=== PATIENT | female | born 1990 | race Caucasian/White ===

== ENCOUNTER 2021-03-18 05:17 | Inpatient (IN) | payer OTHER ==
[2021-03-18] VITALS (17 sets, daily range): BP systolic 83–127; BP diastolic 46–69; PULSE 81–119; TEMP 97.9–98.3
[~2021-03-18] VITALS: Ht 162.6 cm; Wt 102.7 kg
--- NOTE | 2021-03-18 05:25 | NUR ---
0525- PT PRESENTS TO LDR FOR SCHEDULED PRIMARY SECTION, AMBULATORY TO ROOM 209. PT CHANGES INTO GOWN. 0532- EFM X2 APPLIED. 0545- IV START TO LEFT WRIST X3 ATTEMPTS. BLOOD DRAWN FOR LAB. LR INFUSING. 0600- PREOP MEDS GIVEN.
[2021-03-18 06:24] LABS: BASO % 0.2 % (0.0-2.0); EOS # 0.1 (0.0-0.7); EOS % 0.7 % (0-4.0); GRAN # 11.1 (1.4-6.5); GRAN % 74.2 % (42.2-75.2); HEMATOCRIT 37.8 % (37.0-47.0); HEMOGLOBIN 12.9 g/dl (12.5-16.0); LYMPH # 2.1 (1.2-3.4); LYMPH % 14.2 % (20.0-51.0); MEAN CELL VOLUME 95 fl (80.0-100.0); MEAN CORPUSCULAR HEMOGLOBIN 32 pg (27.0-31.0); MEAN CORPUSCULAR HGB CONC 34 g/dl (33.0-37.0); MEAN PLATELET VOLUME 10.1 fl (7.4-10.4); MONO # 1.5 (0.1-0.6); MONO % 9.8 % (1.7-9.3); PLATELET COUNT 240 K/mm3 (130-400); RED BLOOD COUNT 3.98 M/mm3 (4.10-5.30); REDCELL DISTRIBUTION WIDTH-CV 13.8 % (11.5-14.5)
[2021-03-18] MEDS ORDERED: SLOW FE142 MG PO (06:25)
[2021-03-18] MEDS ORDERED: PRENATAL TABLET PO (06:25)
--- NOTE | 2021-03-18 06:57 | NUR ---
FHT: OCCASIONAL CTX NOTED TO BE 60-90S IN LENGTH
--- NOTE | 2021-03-18 11:55 | NUR ---
WHEN THIS RN WAS IN ROOM FOR 1 HOUR VS POST RECOVERY, PT. STARTED GETTING DIAPHORETIC, NAUSEA, AND HOT. BP WAS FOUND TO BE A LITTLE LOW AND A LITTLE TACHYCARDIC (SEE REVIEW). PT. WAS GIVEN COLD WASH CLOTH, NEW BAG OF FLUIDS WERE HUNG, AND RECYCLED BP. THIS BP WAS HIGHER AND SHE WAS LESS TACHYCARDIC (SEE REVIEW). FUNDAL RUB WAS PERFORMED TO ASSESS BLEEDING STATUS. FUNDUS FIRM AT UMBILICUS AND SCANT BLEEDING NOTED. TENDERNESS AROUND FUNDUS PER PT. REPORT. MORE TENDER WHEN BEING RUBBED ON. WILL CONTINUE TO MONITOR PT.
--- NOTE | 2021-03-18 18:30 | NUR ---
Report recieved. Sitting up on the bench at this time. Updated whiteboard and reviewed POC. Going to feed .
[2021-03-19 07:19] VITALS: BP 112/54; PULSE 90; TEMP 98
[2021-03-19] MEDS ORDERED: IBU600 MG PO (08:36)
[2021-03-19] MEDS ORDERED: ROXICODONE 55 MG/TAB PO (08:36)
--- NOTE | 2021-03-19 11:39 | NUR ---
PT. FOB CAME OUT TO NURSING STATION STATING THAT PT. WAS HOT AND DIZZY. RN WENT INTO ROOM TO FIND PT. SITTING IN SHOWER C/O BEING LIGHTHEADED. RN DISCUSSED S/S WITH PT. PT. STATES SHE STARTED FEELING A LITTLE BETTER. SIMILAR EPISODE OCCURED EARLIER TODAY AND YESTERDAY. PT. GETS BETTER AFTER A FEW MINUTES. RN EDUCATED FOB TO STAY IN BATHROOM W/ PT AND EDUCATED ABOUT EMERGENCY CORD IF NEEDED. WILL RECHECK VS ONCE PT. IS OUT OF SHOWER. WILL CALL TO NOTIFY DR. ZAPATA ABOUT UPDATE
[2021-03-19 13:27] LABS: MEAN CELL VOLUME 98 fl (80.0-100.0); MEAN CORPUSCULAR HGB CONC 34 g/dl (33.0-37.0); PLATELET COUNT 219 K/mm3 (130-400); REDCELL DISTRIBUTION WIDTH-CV 14.4 % (11.5-14.5)
[2021-03-19 13:54] LABS: HEMATOCRIT 32.2 % (37.0-47.0); HEMOGLOBIN 10.8 g/dl (12.5-16.0); MEAN CORPUSCULAR HEMOGLOBIN 33 pg (27.0-31.0)
[2021-03-19 13:57] LABS: BAND 1 % (0-10); LYMPHOCYTE 10 % (20.0-51.0); NEUTROPHILS 80 % (42.0-75.2); PLATELET ESTIMATE NORMAL (NORMAL)
[2021-03-19 17:06] VITALS: BP 111/60; PULSE 108; TEMP 98
[2021-03-19 20:10] VITALS: BP 109/57; PULSE 69; TEMP 98.3
[2021-03-20 07:15] VITALS: BP 101/71; PULSE 97; TEMP 98.2
--- NOTE | 2021-03-20 12:05 | NUR ---
DISCHARGE INSTRUCTIONS REVIEWED WITH PATIENT. PATIENT VERBALIZED UNDERSTANDING. ALL PERSONAL BELONGINGS WILL BE GATHERED FROM ROOM AND PATIENT WILL NOTIFY THIS RN WHEN READY TO LEAVE.
== END 2021-03-20 12:00 | disposition home or self-care (01) | DRG 788 ==
LOC: OB 05:17
PROVIDERS: ADMIT Obstetrics & Gynecology
PROC: 10D00Z1 Extraction of Products of Conception, Low, Open Approach (ICD-10-PCS; principal; 2021-03-18)
DX: O34.73 Maternal care for abnormality of vulva and perineum, third trimester (principal); O99.02 Anemia complicating childbirth; D64.9 Anemia, unspecified; O35.8XX0 Maternal care for other (suspected) fetal abnormality and damage, not applicable or unspecified; Z3A.39 39 weeks gestation of pregnancy; Z37.0 Single live birth
CPT/HCPCS: J0690; J1100; J1885; J2405; J2590; J2765; J7120

== ENCOUNTER 2022-05-21 14:23 | Outpatient (CLI) | payer OTHER ==
[~2022-05-21] VITALS: Ht 165.1 cm; Wt 103.6 kg
[~2022-05-21 14:23] MED LIST: IBU600 MG PO; PRENATAL TABLET PO; ROXICODONE 55 MG/TAB PO; SLOW FE142 MG PO
--- NOTE | 2022-05-21 14:30 | NUR ---
PT ARRIVED TO L&D UNIT C/O OF "GUSH OF FLUID" AFTER INTERCOURSE. PT DENIES DECREASED FM, VAGINAL BLEEDING, AND CONTRACTIONS. PT PLACED IN ROOM 5 FOR FURTHER EVALUATION.
[2022-05-21 15:00] VITALS: BP 115/59; PULSE 107; TEMP 98.9
[2022-05-21] MEDS ORDERED: ASPIRIN 81M81 MG/TA2 PO (15:07)
--- NOTE | 2022-05-21 15:50 | NUR ---
PT DISCHARGED HOME IN STABLE CONDITION. LABOR PRECAUTIONS EXPLAINED TO PT. PT VERBALIZED UNDERSTANDING. PT AMBULATED OFF UNIT WITH NO COMPLAINTS.
== END 2022-05-21 15:50 | disposition home or self-care (01) ==
LOC: LDRO 14:23
DX: Z34.93 Encounter for supervision of normal pregnancy, unspecified, third trimester (principal); Z3A.33 33 weeks gestation of pregnancy